=== PATIENT | male | born 2005 | race Caucasian/White ===

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

== ENCOUNTER 2025-05-28 20:45 | Emergency (ER) | payer OTHER, SELFPAY ==
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
--- OUTSIDE RECORDS SUMMARY | 2025-05-28 20:47 | XMS_ITS | Clinical Summary ---
Author Organization [facility] [employer] [employer] Address [address] [place] [address] Care Team Providers Care Control Specialist Name Role Phone Stephane Hassan MD Primary Care Provider [phone] Source Comments [facility] [employer],non-owned Affiliates and Associated Physician Practices is amultiple site organization consisting of ambulatory clinics and hospital sitesin [place], [place], [place] and [place]. This disclosure is being madepursuant to the Care Everywhere program and may not contain all information available regarding this patient. Last updated 18.[facility] [employer] Allergies No known active allergies Medications * Be aware that medications may not be up to date on this document. Alwaysverify current medications with the patient. ibuprofen (MOTRIN) 800 MG tablet Take 800 mg by mouth every 6 hours as needed for Pain Active naproxen sodium (ALEVE) 220 MG tablet Take 220 mg by mouth 2 times daily Active albuterol HFA (PROVENTIL; VENTOLIN; PROAIR) 108 (90 Base) MCG/ACT inhalerIndicatio ns:Acute bronchitis, unspecified organism Inhale 2 (two) puffs by mouth every 6 hours as needed for Wheezing or Cough 1 g 1 Active fluticasone propionate (FLONASE) 50 MCG/ACT nasal sprayIndications :Acute sinusitis, recurrence not specified, unspecified location [place] 2 (two) sprays into each nostril once daily 1 Each 1 Active Active Problems Problem Noted Date Diagnosed Date Acute pain of right shoulder 09/01/2021 Acromioclavicular sprain, right, initial encount er 07/16/2021 Ankle pain 09/02/2015 Immunizations Immunization Administration Dates Next Due DTAP 5 PERTUSSIS ANTIGENS 05/07/2009,,2004,10/01 HEP A PEDS 2 DOSE 05/25/2013,05/04/2012 HEP B VACCINE, PED/ADOL 05/13/2005,2004, HIB-PRP-T 4 DOSE 05/13/2005,2004, 4 Human Papilloma Virus Nineva lent Vaccine 06/03/2016,01/30/2016,05/30/2015 INFLUENZA VACCINE 07/29/2012 THO VACCINE QUAD LAIV4 PF NASAL 08/24/2014,2012 MENINGOCOCCAL ACWY (MCV4P) VAC IM 06/03/2016 MMR 05/04/2012,07/23/2009 POLIO IPV 05/07/2009, 5,2004,10/01 Pneumococcal Pcv13 Conj 08/19/2005,05/13,2004,10/01 TDAP (7yrs+) 07/27/2019,06/03/2016 VARICELLA 05/04/2012,08/19/2005 Social History Tobacco Use Types Packs/Day Years Used Date Smoking Tobacco: Never Smokeless Tobacco: Never Tobacco Cessation:Counseling Given: Not Answered Alcohol Use Standard Drinks/Week Comments Never 0 (1 standard drink = 0.6 oz pur e alcohol) PHQ-2 Answer Date Recorded Patient Health Questionnaire-2 Score 0 08/25/2023 Sex and Gender Information Value Date Recorded Sex Assigned at Not on file 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 Gender Identity Not on file Sexual Orientation Not on file Last Filed Vital Signs Vital Sign Reading Time Taken Comments Blood Pressure 118/71 08/25/2023 12:59 PM NATIONAL RECRUITER Pulse 93 08/25/2023 12:59 PM NATIONAL RECRUITER Temperature 36.3 C (97.4 F) 08/25/2023 12:59 PM NATIONAL RECRUITER Respiratory Rate 16 08/25/2023 12:59 PM NATIONAL RECRUITER Oxygen Saturation 99% 08/25/2023 12:59 PM NATIONAL RECRUITER Inhaled Oxygen Concentration - - Weight 68.9 kg (152 lb) 08/25/2023 12:59 PM NATIONAL RECRUITER Height 175.3 cm (5' 9) 08/25/2023 12:59 PM NATIONAL RECRUITER Body Mass Index 22.45 08/25/2023 12:59 PM NATIONAL RECRUITER Plan of Treatment Health Maintenance Due Date Last Done Comments HIV SCREENING 2019 MENINGOCOCCAL (Group B) VACCINE SHARED DECISION-MAKING (1 of 2 - Standard) 2020 HEPATITIS C SCREENING 07/24/2022 COVID-19 VACCINE ( season) 2024 DEPRESSION SCREENING 10/18/2024 08/25/2023 INFLUENZA VACCINE (#1) 2025 4, 08/24/2013, 07/29/2012 DTAP/TDAP/TD VACCINES (7 - Td or Tdap) 07/27/2029 07/27/2019, 06/03/2016, 05/07/2009, Additional history exists ZOSTER VACCINE (1 of 2) 2054 HEPATITIS B VACCINE Completed 05/13/2005, 2004, 2004 HIB VACCINE Aged Out 05/13/2005, 12/16, 2004 No longer eligible based on patient's age to complete this topic PNEUMOCOCCAL VACCINE Completed 08/19/2005, 05/13/2005, 2004, Additional history exists HPV VACCINE Completed 06/03/2016, 01/16, 05/30/2015 MENINGOCOCCAL GROUPS A/C/Y/W VACCINE Aged Out 06/03/2016 No longer eligible based on patient's age to complete this topic Insurance [facility] ANTHEM ANTHEM ANTHEM MEDICAID - OUT OF STATE Care Teams Control Specialist Relationship Specialty Start Date End Date Stephane Hassan MD [address] [place] [address] PCP - General Family Medicine 07/16/21
[2025-05-28 20:48] VITALS: BP 145/57; PULSE 89; RESP 18; TEMP 36.8; O2SAT 98
--- OUTSIDE RECORDS SUMMARY | 2025-05-28 22:51 | XMS_ITS | Clinical Summary ---
Author Organization [facility] Address [address] [address] Care Team Providers Care Jewel Hole Rough Opener Name Role Phone Stephane Hassan MD Primary Care Provider [phone] [facility],non-owned Affiliates and Associated Physician Practices is amultiple site organization consisting of ambulatory clinics and hospital sitesin [place], [place], [place] and [place]. This disclosure is being madepursuant to the Care Everywhere program and may not contain all information available regarding this patient. Last updated 18.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 Gender Identity Not on file Sexual Orientation Not on file Last Filed Vital Signs Vital Sign Reading Time Taken Comments Blood Pressure 118/71 08/25/2023 12:59 PM PUMP PRESS OPERATOR Pulse 93 08/25/2023 12:59 PM PUMP PRESS OPERATOR Temperature 36.3 C (97.4 F) 08/25/2023 12:59 PM PUMP PRESS OPERATOR Respiratory Rate 16 08/25/2023 12:59 PM PUMP PRESS OPERATOR Oxygen Saturation 99% 08/25/2023 12:59 PM PUMP PRESS OPERATOR Inhaled Oxygen Concentration - - Weight 68.9 kg (152 lb) 08/25/2023 12:59 PM PUMP PRESS OPERATOR Height 175.3 cm (5' 9) 08/25/2023 12:59 PM PUMP PRESS OPERATOR Body Mass Index 22.45 08/25/2023 12:59 PM PUMP PRESS OPERATOR Plan of Treatment Health Maintenance Due Date [...] patient's age to complete this topic Insurance [facility] ANTHEM ANTHEM ANTHEM MEDICAID - OUT OF STATE Care Teams Jewel Hole Rough Opener Relationship Specialty Start Date End Date Stephane Hassan MD [address] [place] [address] PCP - General Family Medicine 07/16/21
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
[2025-05-28] MEDS: IBUPROFEN 400 MG TABLET 800 MG PO (23:39)
[2025-05-28] MEDS: BACITRACIN OINTMENT 15 GM TUBE 1 APPLIC TOPICAL (23:39)
== END 2025-05-28 23:41 | disposition home or self-care (01) ==
PROVIDERS: Emergency Provider Student in an Organized Health Care Education/Training Program; PCP Nurse Practitioner Family
DX: S93.402A Sprain of unspecified ligament of left ankle, initial encounter (principal); S90.512A Abrasion, left ankle, initial encounter; V28.49XA Other motorcycle driver injured in noncollision transport accident in traffic accident, initial encounter
CPT/HCPCS: 73521; 73610; 99284; A9270